=== PATIENT | male | born 1970 | race African-American/Black ===

== ENCOUNTER 2017-10-27 17:05 | Emergency (ER) | payer SELFPAY ==
[~2017-10-27] VITALS: Ht 185.4 cm; Wt 86.2 kg
--- NOTE | 2017-10-27 17:22 | NUR ---
AAOX3, CAME TO ER C/O RECTAL BLEED X 2 HRS AGO, "BRIGHT RED". RR IS EVEN AND UNLABORED WITH NAD NOTED. SKIN IS WARM AND DRY. DR CYR AT BS FOR EVAL.
[2017-10-27 17:54] LABS: BASOPHILS % (AUTO) 0.4 % (0.0-2.0); EOSINOPHILS # (AUTO) 0.1 /CMM (0.0-0.7); EOSINOPHILS % (AUTO) 1.6 % (0.0-6.0); HEMATOCRIT 44 % (39-51); HEMOGLOBIN 14.4 g/dL (13.5-17.5); LYMPHOCYTES # (AUTO) 1.1 /CMM (0.8-4.8); LYMPHOCYTES % (AUTO) 18.3 % (20.0-44.0); MEAN CORPUSCULAR HEMOGLOBIN 30 PG (26.0-33.0); MEAN CORPUSCULAR HGB CONC 33 g/dl (31.0-36.0); MEAN CORPUSCULAR VOLUME 90 fL (80-96); MONOCYTES # (AUTO) 0.4 /CMM (0.1-1.30); MONOCYTES % (AUTO) 6.9 % (2.0-12.0); NEUTROPHILS # (AUTO) 4.4 /CMM (1.8-8.9); NEUTROPHILS % (AUTO) 72.8 % (43.0-81.0); PLATELET COUNT (AUTO) 201 /CMM (150-450); RDW COEFFICIENT OF VARIATION 13.8 (11.5-15.0); RED BLOOD CELL COUNT(AUTO) 4.88 MIL/uL (4.5-6.0); WHITE BLOOD COUNT (AUTO) 6.1 K/uL (4.3-11.0)
[2017-10-27 18:06] VITALS: BP 118/65
--- NOTE | 2017-10-27 18:06 | NUR ---
Patient discharged to home in stable condition. Written and verbal after care instructions given. Patient verbalizes understanding of instruction.
== END 2017-10-27 18:07 | disposition home or self-care (01) ==
LOC: ER 17:10
DX: K64.4 Residual hemorrhoidal skin tags (principal)
CPT/HCPCS: 36415; 85025-TC; A4606; Z7610